=== PATIENT | female | born 1950 | race Caucasian/White ===

== ENCOUNTER → 2018-08-13 09:41 | Outpatient (CLI) | payer MEDICARE, BC ==
[2014-02-10 14:14] VITALS: BMI 35.1
--- NOTE | ~2018-08-13 | ST ---
PATIENT:PAUL CHAVEZ MEDICAL RECORD: [id number] SEX: F LOCATION:[facility] ORDER #: ADMISSION DATE: 08/13/18 AGE OF PATIENT: 68 REFERRING PHYSICIAN: INTERPRETING PHYSICIAN: EMILY TRUONG MD DATE OF SERVICE: 08/13/2018 PROCEDURE: Nuclear stress test. INDICATED BY: Dr. Calabrese in [place]. INDICATION: Angina and coronary artery disease, shortness of breath, hypertension, and hyperlipidemia. She was exercised on standard Lexiscan protocol with 33 mCi of sestamibi injected at peak stress, 11 mCi used for rest images. FINDINGS: Gated SPECT reveals preserved ejection fraction at 67% with good wall motioning and thickening and brightening throughout all segments. SPECT imaging Cardiolite was used as myocardial perfusion agent. There is reversibility anteriorly and apically. This includes the basal, mid apical, anterior segments as well as the apex itself. The degree of reversibility is moderate. The amount of myocardium involved is moderate to large. OVERALL IMPRESSION: 1. This is an abnormal nuclear stress test, reversible changes anteroapically. 2. Gated SPECT reveals preserved ejection fraction at 67% in this patient with ongoing symptomatology, the current scan does suggest the presence of hemodynamically significant coronary artery disease. We will proceed with coronary angiography as followup study. TRANSINT:[id number] Voice Confirmation ID: [id number] DOCUMENT ID: [id number] EMILY TRUONG MD CC: [id number] DICTATION DATE: 08/13/18 1619 RAYMOND MILL OPERATOR: 08/14/18 0430 DEP CLI 08/13/18 [facility] [address] [id number]
[~2018-08-13 09:41] MED LIST: ASPIRIN EC81 M1 PO; DEMEROL50 MG PO; MELATONIN 3 MG1 TAB PO; PLAVIX75 MG PO
== END | disposition home or self-care (01) ==
LOC: D.HCCARDIO 09:41
PROVIDERS: ATTEND Internal Medicine Interventional Cardiology
DX: I25.10 Atherosclerotic heart disease of native coronary artery without angina pectoris (principal)

== ENCOUNTER 2018-08-22 07:59 | Outpatient (CLI) | payer MEDICARE, BC ==
[~2018-08-22] VITALS: Ht 162.6 cm; Wt 114.1 kg
--- NOTE | ~2018-08-22 | HEMODYNAMI ---
PATIENT:PAUL CHAVEZ MEDICAL RECORD: [id number] : 50 LOCATION:[facility] ADMISSION DATE: 08/22/18 Generatedon:08/22/201811:08 Patient name: PAUL CHAVEZ Patient #: [id number] SSN: : 1950 Date of study: 08/22/2018 Page: Of Hemodynamic Procedure Report Patient Data Patient Demographics Procedure consent was obtained First Name: PAUL Gender: Female Last Name: SCOTT : 1950 [facility] Initial: F Age: 68 year(s) Patient #: [id number] Race: Unknown Additional ID: [id number] Contact details [address]: [address] [place] [address] State: [place] City: [place] Zip code: [address] Admission Admission Data Admission Date: 08/22/2018 Admission Time: 7:59 Lab Results Lab Result Date: 08/22/2018 Lab Result Time: 0:00 Biochemistry Name Units Result Min Max BUN mg/dl 14 --(--*-)-- 7 18 Creatinine mg/dl 0.7 --(*---)-- 0.6 1.3 CBC Name Units Result Min Max Hematocrit % 42.6 --(*---)-- 42 54 Hemoglobin g/dl 14.5 --(*---)-- 13.5 17.5 Procedure Procedure Types Cath Procedure Diagnostic Procedure LHC LH w/Coronaries FFR/IVUS FFR Initial Sedation Charges Moderate Sedation up to 15 minutes PCI Procedure Coronary Stent Coronary Stent Initial Procedure Description Procedure Date Procedure Date: 08/22/2018 Procedure Start Time: 10:46 Procedure End Time: 11:05 Procedure Staff Name Function Eliezer Layton MD Performing Physician Marbella Sorto RT Scrub Andreia Soni RT Monitor Kaye Hayes RN Nurse Procedure Data Cath Procedure Fluoroscopy Diagnostic fluoroscopy Total fluoroscopy Time: 6.3 time: 6.3 min min Diagnostic fluoroscopy Total fluoroscopy dose: dose: 1231 mGy 1231 mGy Contrast Material Contrast Material Type Amount (ml) Isovue 300 119 Entry Location Entry Primary Successful Side Size Upsize Upsize Entry Closure [place] ccessful Closure Location (Fr) 1 (Fr) 2 (Fr) Remarks Device Remarks Radial Right 6 Fr Mechanical artery Short Compression Estimated blood loss: 10 ml Diagnostic catheters Device Type Used For End Catheter Placement DIAGNOSTIC [place] 110cm 5 Procedure Fr catheter ([id number]) Procedure Complications No complications Procedure Medications Medication Administration Route Dosage 0.9% NaCl I.V. 100 ml/hr Oxygen etCO2 Nasal cannula 2 l/min Lidocaine 2% added to field 20 Heparin Flush Bag added to field 2 bags (1000units/500ml NS) Radial Cocktail added to field 1 syringe (Verapamil 2mg/Nitro 400mcg/Heparin 1500units) Versed I.V. 2 mg Fentanyl I.V. 50 mcg Versed I.V. 1 mg Fentanyl I.V. 25 mcg Heparin Bolus I.V. 4000 units Integrilin (Bolus I.V. 10.2 ml 2mg/ml) Plavix P.O. 600 mg Hemodynamics Rest HGB: 14.5 (g/dl) Heart Rate: 75 (bpm) Snapshots Pre Cath Intra NCS Post Cath Vital Signs Time Heart Resp SPO2 etCO2 NIBP (mmHg) Rhythm Pain Sedation Rate (ipm) (%) (mmHg) Status Level (bpm) 10:33:34 74 13 98 41 165/94(140) NSR 0 (11) 10(A) , No pain 10:38:07 69 12 97 39.8 163/93(137) NSR 0 (11) 10(A) , No pain 10:42:37 71 14 96 39.1 137/79(97) NSR 0 (11) 10(A) , No pain 10:46:59 73 14 98 41.3 133/70(113) NSR 0 (11) 10(A) , No pain 10:51:26 80 11 98 39.1 124/72(90) NSR 0 (11) 10(A) , No pain 10:55:50 75 11 97 42.1 133/69(93) NSR 0 (11) 9(A) , No pain 11:00:16 79 13 97 43.6 128/71(98) NSR 0 (11) 9(A) , No pain 11:04:40 76 14 98 41.3 126/70(99) NSR 0 (11) 10(A) , No pain Medications Time Medication Route Dose Verified Delivered Reason Not es Effectiveness by by 10:34:13 0.9% NaCl I.V. 100 Eliezer Kaye used for ml/hr Kinjal Hayes cook 3 pastry 10:34:20 Oxygen etCO2 2 l/min Eliezer Kaye used for Nasal Kinjal Hayes procedure cannula RN 10:34:25 Lidocaine 2% added 20ml Eliezer Eliezer for local to vial Kinjal Layton MD anesthetic field 10:34:30 Heparin Flush added 2 bags Eliezer Eliezer used for Bag to Kinjal Layton MD procedure (1000units/500ml field NS) 10:34:37 Radial Cocktail added 1 Eliezer Eliezer used for (Verapamil to syringe Kinjal Layton MD procedure 2mg/Nitro field 400mcg/Heparin 1500units) 10:46:22 Versed I.V. 2 mg Eliezer Kaye for sedation Kinjal Hayes RN 10:46:27 Fentanyl I.V. 50 mcg Eliezer Kaye for sedation Kinjal Hayes RN 10:51:40 Versed I.V. 1 mg Eliezer Kaye for sedation Kinjal Hayes RN 10:51:44 Fentanyl I.V. 25 mcg Eliezer Kaye for sedation Kinjal Hayes RN 10:55:52 Heparin Bolus I.V. 4000 Eliezer Kaye for sera ified units Kinjal Hayes anticoagulation with Dr. KHUSHI Layton 10:56:07 Integrilin I.V. 10.2 ml Eliezer Kaye for (Bolus 2mg/ml) Kinjal Hayes antiplatelet RN therapy 10:56:22 Plavix P.O. 600 mg Eliezer Kaye for Kinjal Hayes antiplatelet RN therapy Procedure Log Time Note 10:25:31 Kaye Hayes RN sent for patient. Start room use. 10:25:32 Time tracking: Regular hours (M-F 7:00 - 5:00) 10:25:37 Plan of Care:Hemodynamics will remain stable., Cardiac rhythm will remain stable., Comfort level will be maintained., Respiratory function will remain adequate., Patient/ family verbilizes understanding of procedure., Procedure tolerated without complication., Recovers from procedure without complications.. 10:26:37 Patient received from Pre/Post Procedure Room to CCL 1 Alert and oriented. Tansferred to table in Supine position. 10:26:39 Warm blankets applied, and rachelle hugger turned on for patient comfort. 10::39 Correct patient and procedure confirmed by team. 10:26:41 Signed procedure consent form obtained from patient. 10:26:42 ECG and BP/O2 sat monitors applied to patient. 10:32:10 Vital chart was started 10:32:38 Baseline sample Acquired. 10:32:42 Rhythm: sinus rhythm 10:32:44 Full Disclosure recording started 10:32:47 H&P Date Dictated: 08/22/2018 Within 30 days and on chart., H&P Addendum completed by physician on day of procedure. (MUST COMPLETE FOR ALL OUTPATIENTS). 10:32:49 Pre-procedure instructions explained to patient. 10:32:49 Pre-op teaching completed and patient verbalized understanding. 10:32:51 Family in waiting room. 10:32:52 Patient NPO since Midnight. 10:32:54 Is the patient allergic to Iodine/contrast media? No. 10:32:55 Was the patient premedicated? No 10:34:13 0.9% NaCl 100 ml/hr I.V. was administered by Kaye Hayes RN; used for procedure; 10:34:20 Oxygen 2 l/min etCO2 Nasal cannula was administered by Kaye Hayes RN; used for procedure; 10:34:25 Lidocaine 2% 20ml vial added to field was administered by Eliezer Layton MD; for local anesthetic; 10:34:30 Heparin Flush Bag (1000units/500ml NS) 2 bags added to field was administered by Eliezer Layton MD; used for procedure; 10:34:37 Radial Cocktail (Verapamil 2mg/Nitro 400mcg/Heparin 1500units) 1 syringe added to field was administered by Eliezer Layton MD; used for procedure; 10:35:19 Snore? Yes 10:35:22 Sleep apnea? Yes 10:35:25 Deviated septum? No 10:35:27 Opens mouth fully? Yes 10:35:29 Sticks out tongue? Yes 10:35:38 Patient diabetic? Yes. 10:35:45 If diabetic: On Metformin? Yes 10:35:54 If on Metformin: Last Dose? 08/21/2018 10:36:19 ----Pre-sedation anethsthesia assessment.---- 10:36:24 Previous problem with sedation/anesthesia? No ? 10:36:30 Airway obstruction? No ? 10:36:34 Airway obstruction? No ? 10:36:37 Dentures? No ? 10:36:57 Pre procedure: right dorsailis pedis pulse 2+ Normal; easily identifiable; not easily obliterated 10:37:07 Modified Biju's test Radial < 7 seconds 10:37:27 Patient pain scale 0/10 ?. 10:37:46 IV patent on arrival in right forearm with 0.9% NaCl at 100ml/hr. 10:40:14 Baseline sample Acquired. 10:41:36 Lab results completed and on chart. 10:42:09 Lab Result : Creatinine 0.7 mg/dl 10:42:09 Lab Result : BUN 14 mg/dl 10:42:09 Lab Result : Hemoglobin 14.5 g/dl 10:42:09 Lab Result : Hematocrit 42.6 % 10:42:14 Right Radial & Right Groin area was prepped with chlora-prep and draped in sterile fashion 10:42:17 Alarms reviewed by R. N. 10:42:17 Sharps counted by scrub and verified by R.N. 10:42:57 Use device set Radial Dx or PCI 10:42:58 ACIST Syringe (47139) opened to sterile field. 10:42:59 Bag Decanter (2002S) opened to sterile field. 10:42:59 ACIST Manifold (76669) opened to sterile field. 10:43:00 ACIST Hand Control (21440) opened to sterile field. 10:43:01 Tegaderm 4 x 4 (1626W) opened to sterile field. 10:43:03 Medline Cath Pack ([id number]) opened to sterile field. 10:43:04 DIAGNOSTIC WIRE .035 260cm J wire (173325) opened to sterile field. 10:43:05 MBrace Wrist Support ([id number]) opened to sterile field. 10:43:06 SHEATH 6FR Slender (28-2919) opened to sterile field. 10:43:26 Zero performed for pressure channel P1 10:44:12 Zero performed for pressure channel P1 10:45:39 --------ALL STOP TIME OUT------ 10:45:39 Final Timeout: patient, procedure, and site verified with staff and physician. All members of the team are in agreement. 10:45:40 Right Radial & Right Groin site verified by team. 10:45:43 Maximum allowable Isovue 300 dose 300ml. Physician notified. (300ml for normal creatinines. For patients with creatinine of 1.7 or higher multiply weight(kg) x 5 divided by creatinine.) 10:45:46 Fire Safety Assessment: A--An alcohol-based skin anteseptic being used preoperatively., C--Open oxygen or nitrous oxide is being used., D--An ESU, laser, or fiber-optic light is being used. 10:45:48 Physical assessment completed. ASA score P 2 - A patient with mild systemic disease as per Eliezer Layton MD. 10:45:50 Sedation plan: IV Moderate Sedation Medication:Versed, Fentanyl 10:46:02 Procedure started. 10:46:22 Versed 2 mg I.V. was administered by Kaye Hayes RN; for sedation; 10:46:25 Local anesthetic to right radial artery with Lidocaine 2% by Eliezer Layton MD.INITIAL ACCESS ONLY 10:46:27 Fentanyl 50 mcg I.V. was administered by Kaye Hayes RN; for sedation; 10:46:57 A 6 Fr Short sheath was inserted into the Right Radial artery 10:47:13 A DIAGNOSTIC [place] 110cm 5 Fr catheter (015042) was advanced over the wire and used for Procedure. 10:47:19 LV gram done using MCNULTY 10:47:22 Injector settings: Ml/sec: 7, Volume: 15, 10:47:49 EF : 65 % 10:48:50 LCA angiography performed. 10:49:07 RCA angiography performed. 10:49:09 Catheter exchanged over wire. 10:49:50 GUIDE 6FR XBLAD 3.5 catheter ([id number]) opened to sterile field. 10:49:50 Rimforest Verrata Plus pressure wire (64520Z) opened to sterile field. 10:49:50 INFLATOR Merit BasixCompak (AP9789) opened to sterile field. 10:50:54 6 Fr XBLAD 3.5 guide catheter was inserted over the wire 10:51:40 Versed 1 mg I.V. was administered by Kaye Hayes RN; for sedation; 10:51:44 Fentanyl 25 mcg I.V. was administered by Kaye Hayes RN; for sedation; 10:52:47 FFR/IFR wire advanced. 10:53:41 DIAG lesion measured at 0.89 with IFR 10:55:52 Heparin Bolus 4000 units I.V. was administered by Kaye Hayes RN; for anticoagulation; verified with Dr. Layton 10:56:07 Integrilin (Bolus 2mg/ml) 10.2 ml I.V. was administered by Kaye Hayes RN; for antiplatelet therapy; 10:56:22 Plavix 600 mg P.O. was administered by Kaye Hayes RN; for antiplatelet therapy; 10:58:00 Place stent Inflation Number: 1 A COBRA RX 2.5 X 8 Stent was prepped and advanced across the 1st Diag. The stent was deployed at 13 GIL for 0:10 (min:sec). 10:58:12 Stent catheter was removed intact over wire. 10:58:17 Wire redirected to CIRC. 11:02:35 Wire removed. 11:02:37 Guide catheter removed. 11:02:45 Procedure ended.(Physican Out) 11:02:53 TR BAND Standard ([id number]) opened to sterile field. 11:03:46 Sheath removed intact; hemostasis achieved with Mechanical Compression to the Right Radial artery. 11:03:58 Fluoroscopy time 06.30 minutes. 11:04:05 Fluoroscopy dose: 1231 mGy 11:04:05 Flurop Dose total: 1231 11:04:13 Contrast amount:Isovue 300 119ml. 11:04:14 Sharps counted by scrub and verified by R.N. 11:04:23 TR band inflated with 10cc of air. 11:04:27 Post-procedure physical assessment completed. ASA score P 2 - A patient with mild systemic disease as per Eliezer Layton MD. 11:04:29 Post procedure rhythm: sinus rhythm 11:04:31 Estimated blood loss: 10 ml 11:04:37 Post procedure instruction explained to patient.Patient verbalizes understanding. 11:04:38 Patient needs reinforcement of post procedure teaching. 11:05:05 Procedure type changed to Cath procedure, Diagnostic procedure, LHC, [facility] w/Coronaries, FFR/IVUS, FFR Initial, Sedation Charges, Moderate Sedation up to 15 minutes, PCI procedure, Coronary Stent, Coronary Stent Initial 11:05:32 Procedure and supply charges have been captured, reviewed, submitted and are correct. 11:05:35 Procedure Complication : No complications 11:05:37 Vital chart was stopped 11:05:37 See physician's report for complete and final results. 11:05:38 Report given to Pre/Post Procedure Room. 11:05:44 Patient transfered to Pre/Post Procedure Room with Bed. 11:05:46 Procedure ended. 11:05:46 Full Disclosure recording stopped 11:05:48 End room use (Document Last) Intervention Summary Intervention Notes Time ActionType Lesion and Equipment Action# Pressure Duration Attributes Used 10:58:00 Place stent 1st Diag COBRA RX 1 13 00:10 2.5 X 8 Stent Device Usage Item Name Manufacture Quantity Catalog Hospital Part Current Minimal Lot# / Number Charge Number Stock Stock Serial# Code ACIST Syringe Acist 1 47644 246854 042779 997457 20 (79969) Medical Systems Inc Bag Decanter Microtek 1 2001S 834212 38336 757719 5 (2001S) Medical Inc. ACIST Manifold Acist 1 97070 613651 164379 202852 5 (65800) Medical Systems Inc ACIST Hand Acist 1 43350 354821 326757 593901 5 Control Medical (38207) Systems Inc Tegaderm 4 x 4 3M 1 1626W 800243 798771 576713 5 (1626W) Medline Cath Medline 1 [id number] 847014 63194 629673 5 Pack ([id number]) DIAGNOSTIC [place] 1 562961 350212 496671 891301 30 WIRE .035 260cm J wire (595483) MBrace Wrist Advanced 1 140-0250-00 074122 82932 354138 5 Support Vascular ([id number]) Dynamics SHEATH 6FR Terumo 1 [id number] 335618 641155 217834 5 Slender (80-1060) DIAGNOSTIC Terumo 1 40-5752 869020 867678 588849 5 [place] 110cm 5 Fr catheter (824352) GUIDE 6FR Cardinal 1 [id number] 948185 869203 048576 10 XBLAD 3.5 Health catheter (62712473) Rimforest Rimforest 1 70001M 082588 498904453 776290 5 Verrata Plus pressure wire (04950P) INFLATOR Merit Merit 1 UP7568 084154 041342 956556 15 [facility] Medical (KV6295) COBRA RX 2.5 X Celonova 1 230167 [id number] [id number] 7 [id number] 8 stent Biosciences () TR BAND Terumo 1 [id number] 606696 327732 463980 40 Standard ([id number]) Signature Audit [place] Stage Time Signature Unsigned Intra-Procedure 08/22/2018 Andreia Soni 11:08:36 AM RT(R) Signatures Monitor : Andreia Soni Signature : RT Date : Time : [address] [place] [address]
[2018-08-22] MEDS ORDERED: LISINOPRIL5 MG PO (08:18)
[2018-08-22] MEDS ORDERED: GLUCOPHAGE500 MG PO (08:18)
[2018-08-22] MEDS ORDERED: GLIMEPIRIDE2 MG PO (08:18)
[2018-08-22] MEDS ORDERED: GABAPENTIN100 MG PO (08:18)
[2018-08-22 08:26] VITALS: BP 135/52; Ht 162.6 cm; Wt 114.1 kg
[2018-08-22 08:45] LABS: BASOPHILS 0.4 % (0-2); EOSINOPHILS 4.6 % (0-7); HEMATOCRIT 42.6 % (36.0-48.0); HEMOGLOBIN 14.5 g/dL (12-16); IMMATURE GRANULOCYTES 0.2 % (0-5); MCH 29.7 pg (26.0-34.0); MCV 87.1 fL (80.0-100.0); MEAN PLATELET VOLUME 9.6 fL (7.4-10.4); MONOCYTES 8.6 % (2-11); NEUTROPHILS 67.2 % (40-80); PLATELET COUNT 202 10x3/uL (130-400); RBC 4.89 10x6/uL (4.00-5.40); RDW 12.9 % (11.5-14.5); WBC 5.2 10x3/uL (4.8-10.8)
[2018-08-22 08:52] LABS: CALC OSMOLALITY 280 mosm/kg (275-300); CALCIUM 9.1 mg/dL (8.5-10.1); CARBON DIOXIDE 26.6 mmol/L (21.0-32.0); CHLORIDE - SERUM 104 mmol/L (98-107); CREATININE - SERUM 0.7 mg/dL (0.6-1.3); GLUCOSE 109 mg/dL (74-106); POTASSIUM - SERUM 4.2 mmol/L (3.5-5.1); SODIUM 140 mmol/L (136-145); UREA NITROGEN 14 mg/dL (7-18); eGFR NON AFRICAN AMERICAN 88 mL/min (90-120)
[2018-08-22] MEDS ORDERED: PLAVIX75 MG PO (11:23)
--- NOTE | 2018-08-22 16:42 | OP ---
PATIENT NAME: PAUL CHAVEZ MEDICAL RECORD: [id number] :50 LOCATION:[facility] ADMISSION DATE: SURGEON: EMILY TRUONG MD DATE OF OPERATION: 08/22/2018 DATE OF SERVICE: 08/22/2018 PROCEDURES: 1. PTCA stent LAD diagonal. 2. IFR. 3. Left heart catheterization. 4. Selective coronary angiography. 5. Left ventriculogram. INDICATION: Angina and coronary artery disease. DESCRIPTION OF PROCEDURE IN DETAIL: After informed consent was obtained and after a detailed description of risks, benefits as well as alternative therapies, the patient elected to proceed with angiogram and angioplasty. The right radial area was prepped and draped in normal sterile fashion. Right radial artery was cannulated via modified Seldinger technique with placement of 6-Yoruba sheath. All catheters exchanged through this sheath. FINDINGS: The left ventriculogram was performed in the standard 30-degree MCNULTY view, reveals good cardiac wall motion throughout all segments. Overall ejection fraction is estimated at 65%. SELECTIVE CORONARY ANGIOGRAPHY: 1. Left main is with no significant angiographic disease. 2. Left anterior descending has previously placed stents, these are widely patent; however, there is a large diagonal system that has 80% to 90% stenosis at the ostium. IFR is abnormal. 3. Left circumflex has previously placed stents. There is a 50% in-stent restenosis in the mid vessel. 4. Right coronary has moderate irregularities, but no discrete flow-limiting stenosis. PTCA STENT OF THE LAD DIAGONAL: The stent used was a 2.5 x 8 mm Cobra. Result was 0% residual stenosis. OVERALL IMPRESSION: Successful percutaneous transluminal coronary angioplasty stent the left anterior descending diagonal going from 80% to 90% initial stenosis to 0% residual. TRANSINT:[id number] Voice Confirmation ID: [id number] DOCUMENT ID: [id number] EMILY TRUONG MD at 1642 CC: [id number] DICTATION DATE: 08/22/18 1111 SPOOL SALVAGER: 08/22/18 1145 DEP CLI 08/22/18 [address] [id number]
== END 2018-08-22 15:05 ==
LOC: D.CATH 07:59 → EDSTATUS 10:30 → D.CATH 15:05
PROVIDERS: ATTEND Internal Medicine Interventional Cardiology
DX: I25.110 Atherosclerotic heart disease of native coronary artery with unstable angina pectoris (principal); R94.30 Abnormal result of cardiovascular function study, unspecified; R06.02 Shortness of breath

== ENCOUNTER → 2019-03-06 07:57 | Outpatient (CLI) | payer MEDICARE, BC ==
[2018-08-22 08:26] VITALS: BMI 43.2
[~2019-03-06 07:57] MED LIST changes: +GABAPENTIN100 MG PO; +GLIMEPIRIDE2 MG PO; +GLUCOPHAGE500 MG PO; +LISINOPRIL5 MG PO
--- NOTE | 2019-03-11 11:17 | ST ---
PATIENT:PAUL CHAVEZ MEDICAL RECORD: [id number] SEX: F LOCATION:[facility] ORDER #: ADMISSION DATE: 03/06/19 AGE OF PATIENT: 68 REFERRING PHYSICIAN: INTERPRETING PHYSICIAN: EMILY TRUONG MD DATE OF SERVICE: PROCEDURE: Nuclear stress test. INDICATIONS: Angina, coronary artery disease, shortness of breath, hypertension. She was exercised on standard Lexiscan protocol with 33 mCi of sestamibi injected at peak stress, 11 mCi used previously for rest images. FINDINGS: Gated SPECT reveals a preserved ejection fraction at 78% with good wall motion and thickening and brightening throughout all segments. SPECT imaging: Cardiolite was used as myocardial perfusion agent. There is reversibility anteriorly, apically, and laterally as well as inferiorly. The anteroapical segments including the basal, mid, apical anterior segments, the apex itself, apical lateral, mid lateral, basal lateral segments. The degree of reversibility is moderate to severe. The amount of myocardium involved is large. The inferior segments included the basal, mid, apical inferior segments. The degree of reversibility here is moderate. The amount of myocardium involved is moderate. OVERALL IMPRESSION: This is very highly abnormal nuclear stress test. Reversible ischemia throughout anterior, inferior, apically, and laterally suggestive of multivessel coronary artery disease. TRANSINT:[id number] Voice Confirmation ID: [id number] DOCUMENT ID: [id number] EMILY TRUONG MD at 1117 CC: FLOYD ROSS MD [id number] DICTATION DATE: 03/09/19 1105 INSPECTOR OPTICAL INSTRUMENT: 03/09/198 DEP CLI 03/06/19 [facility] [address] [place] [address]
== END | disposition home or self-care (01) ==
LOC: D.HCCARDIO 07:57
PROVIDERS: ATTEND Internal Medicine Interventional Cardiology
DX: I25.10 Atherosclerotic heart disease of native coronary artery without angina pectoris (principal)

== ENCOUNTER 2019-03-18 07:01 | Outpatient (CLI) | payer MEDICARE, BC ==
[~2019-03-18] VITALS: Ht 162.6 cm; Wt 121.4 kg
--- NOTE | ~2019-03-18 | OP ---
PATIENT NAME: PAUL CHAVEZ MEDICAL RECORD: [id number] :50 LOCATION:[facility] ADMISSION DATE: SURGEON: EMILY TRUONG MD DATE OF OPERATION: 03/18/2019 PROCEDURES: 1. PTCA stent LAD. 2. PTCA stent left circumflex. 3. IFR LAD. 4. IFR left circumflex. 5. Left heart catheterization. 6. Selective coronary angiography. 7. Left ventriculogram. INDICATION: Angina and coronary artery disease. PROCEDURE IN DETAIL: After informed consent was obtained and after a detailed description of risks, benefits as well as alternative therapies, the patient elected to proceed with angiogram and angioplasty. The right radial area was prepped and draped in normal sterile fashion. Right radial artery was cannulated via modified Seldinger technique with placement of 6-German sheath. All catheters exchanged through this sheath. FINDINGS: Left ventriculogram was performed in standard 30-degree MCNULTY view, reveals good cardiac wall motion, ejection fraction estimated 60%. SELECTIVE CORONARY ANGIOGRAPHY: 1. Left main is with no significant angiographic disease. 2. Left anterior descending has 70% to 80% stenosis proximally. An IFR is abnormal at 0.88. 3. Left circumflex has previously placed stents. There is 80% in-stent restenosis in the mid vessel and IFR was abnormal at 0.77. 4. Right coronary artery has moderate irregularities, but no flow-limiting stenosis. PTCA STENT OF THE LAD: The stent used was 3.0 x 18 mm [place]. Result was 0% residual stenosis. PTCA STENT OF LEFT CIRCUMFLEX: The stent used was a 2.5 x 15 mm [place]. Result was 0% residual stenosis. OVERALL IMPRESSION: Successful percutaneous transluminal coronary angioplasty stent of the left anterior descending and left circumflex, both going from 70% to 80% initial stenosis to 0% residual. TRANSINT:[id number] Voice Confirmation ID: [id number] DOCUMENT ID: [id number] OPERATIVE REPORT [id number] PAUL CHAVEZ EMILY TRUONG MD CC: [id number] DICTATION DATE: 03/18/19 1028 [employer] MANAGER: 03/18/19 1045 [facility] [address] [place] [address]
--- NOTE | ~2019-03-18 | HEMODYNAMI ---
PATIENT:PAUL CHAVEZ MEDICAL RECORD: [id number] : 50 LOCATION:[facility] ADMISSION DATE: 03/18/19 Generatedon:03/18/201910:32 Patient name: PAUL CHAVEZ Patient #: [id number] SSN: : 1950 Date of study: 03/18/2019 Page: Of Hemodynamic Procedure Report Patient Data Patient Demographics Procedure consent was obtained First Name: PAUL Gender: Female Last Name: SCOTT : 1950 [facility] Initial: F Age: 69 year(s) Patient #: [id number] Race: Additional ID: [id number] Contact details [address]: [address] [place] [address] State: [place] City: [place] Zip code: [address] Past Medical History Allergies Allergen Reaction Date Comments Reported Other allergy 03/18/2019 OXYCODONE Admission Admission Data Admission Date: 03/18/2019 Admission Time: 7:01 Arrival Date: 03/18/2019 Arrival Time: 0:00 Room #: [facility] Height (in.): 63.78 BSA: 2.21 (m2) Height (cm.): 162 BMI: 46.11 (kg/m2) Weight (lbs.): 266.76 Weight (kg.): 121 Lab Results Lab Result Date: 03/18/2019 Lab Result Time: 0:00 Biochemistry Name Units Result Min Max BUN mg/dl 9 --(*---)-- 7 18 Creatinine mg/dl 0.8 --(-*--)-- 0.6 1.3 eGFR ml/min 75 *-(----)-- 90 120 NONAFRICAN CBC Name Units Result Min Max Hematocrit % 44.3 --(*---)-- 42 54 Hemoglobin g/dl 15 --(-*--)-- 13.5 17.5 Procedure Procedure Types Cath Procedure Diagnostic Procedure [facility] w/Coronaries FFR/IVUS FFR Initial FFR Additional Sedation Charges Moderate Sedation up to 15 minutes PCI Procedure Coronary Stent Coronary Stent Initial x2 Hemochron ACT Test Procedure Description Procedure Date Procedure Date: 03/18/2019 Procedure Start Time: 10:06 Procedure End Time: 10:29 Procedure Staff Name Function Eliezer Layton MD Performing Physician Andreia Soni RT Monitor Alyssa Hsu RT Monitor Anibal Zapien RN Nurse Addison Elias RT Scrub Destiney Gentile RT Scrub Procedure Data Cath Procedure Fluoroscopy Diagnostic fluoroscopy Total fluoroscopy Time: 6.7 time: 6.7 min min Diagnostic fluoroscopy Total fluoroscopy dose: dose: 1755 mGy 1755 mGy Contrast Material Contrast Material Type Amount (ml) Isovue 370 124 Entry Location Entry Primary Successful Side Size Upsize Upsize Entry Closure [place] ccessful Closure Location (Fr) 1 (Fr) 2 (Fr) Remarks Device Remarks Radial Right 6 Fr Mechanical artery Short Compression Estimated blood loss: 10 ml Diagnostic catheters Device Type Used For End Catheter Placement DIAGNOSTIC [place] 110cm 5 Procedure Fr catheter ([id number]) Procedure Complications No complications Procedure Medications Medication Administration Route Dosage Oxygen etCO2 Nasal cannula 2 l/min Lidocaine 2% added to field 20 Heparin Flush Bag added to field 2 bags (1000units/500ml NS) 0.9% NaCl I.V. 100 ml/hr Radial Cocktail I.A. 1 syringe (Verapamil 2mg/Nitro 400mcg/Heparin 1500units) Versed I.V. 1 mg Fentanyl I.V. 50 mcg Versed I.V. 1 mg Fentanyl I.V. 50 mcg Versed I.V. 1 mg Fentanyl I.V. 50 mcg Heparin Bolus I.V. 4000 units Integrilin (Bolus I.V. 10.7 ml 2mg/ml) Versed I.V. 0.5 mg Fentanyl I.V. 25 mcg Plavix P.O. 600 mg Hemodynamics Rest BSA: 2.21 (m2) HGB: 15 (g/dl) O2 Consumption: Estimated: 213.42 (ml/min) O2 Cons umption indexed: Estimated:96.57 (ml/min/m) Heart Rate: 81 (bpm) Snapshots Pre Cath Intra NCS Post Cath Vital Signs Time Heart Resp SPO2 etCO2 NIBP (mmHg) Rhythm Pain Sedation Rate (ipm) (%) (mmHg) Status Level (bpm) 9:52:02 88 21 95 27.8 145/40(106) NSR 0 (11) 10(A) , No pain 9:56:24 86 13 94 19.5 128/59(88) NSR 0 (11) 10(A) , No pain 10:00:46 77 19 95 31.5 129/59(100) NSR 0 (11) 10(A) , No pain 10:05:06 78 14 97 34.5 123/56(93) NSR 0 (11) 10(A) , No pain 10:09:12 85 18 95 35.3 98/64(78) NSR 0 (11) 9(A) , No pain 10:14:27 86 18 93 43.5 121/38(90) NSR 0 (11) 9(A) , No pain 10:18:41 87 19 94 36.8 122/56(86) NSR 0 (11) 9(A) , No pain 10:23:06 91 22 95 37.6 119/49(75) NSR 0 (11) 9(A) , No pain 10:28:09 90 12 96 37.6 130/60(85) NSR 0 (11) 10(A) , No pain Medications Time Medication Route Dose Verified Delivered Reason Not es Effectiveness by by 9:53:08 Oxygen etCO2 2 l/min Eliezer Barnett used for Nasal Kinjal Zapien RN procedure cannula 9:53:13 Lidocaine 2% added 20ml Eliezer Martins for local to vial Kinjal Layton MD anesthetic field 9:53:18 Heparin Flush added 2 bags Eliezer Martins used for Bag to Kinjal Layton MD procedure (1000units/500ml field NS) 9:53:28 0.9% NaCl I.V. 100 Eliezer Buffie Per physician ml/hr Kinjal Zapien RN 10:01:02 Fentanyl I.V. 50 mcg Eliezer Barnett for sedation Kinjal Zapien RN 10:01:57 Versed I.V. 1 mg Eliezerzac Duronie for sedation Kinjal Zapien RN 10:04:43 Versed I.V. 1 mg Eliezer Buffie for sedation Kinjal Zapien RN 10:04:46 Fentanyl I.V. 50 mcg Eliezer Barnett for sedation Kinjal Zapien RN 10:07:28 Radial Cocktail I.A. 1 Eliezer Martins for (Verapamil syringe Kinjal Layton MD vasodilation 2mg/Nitro 400mcg/Heparin 1500units) 10:07:59 Versed I.V. 1 mg Eliezer Barnett for sedation Kinjal Zapien RN 10:08:03 Fentanyl I.V. 50 mcg Eliezer Barnett for sedation Kinjal Zapien RN 10:11:13 Versed I.V. 0.5 mg Eliezer Barnett for sedation Kinjal Zapien RN 10:11:18 Fentanyl I.V. 25 mcg Eliezer Barnett for sedation Kinjal Zapien RN 10:17:43 Heparin Bolus I.V. 4000 Eliezer Barnett for sera ified units Kinjal Zapien RN anticoagulation with dr layton 10:18:35 Integrilin I.V. 10.7 ml Eliezer Barnett for was suze (Bolus 2mg/ml) Kinjal Zapien RN antiplatelet 9.3 ml therapy of vial 10:27:27 Plavix P.O. 600 mg Eliezer Zapien RN antiplatelet therapy Procedure Log Time Note 9:30:46 Informed consent obtained and on chart 9:34:06 Anibal Zapien RN sent for patient. Start room use. 9:34:09 Procedure Status Elective Heart Cath (OP). 9:34:10 Time tracking: Regular hours (M-F 7:00 - 5:00) 9:34:13 Plan of Care:Hemodynamics will remain stable., Cardiac rhythm will remain stable., Comfort level will be maintained., Respiratory function will remain adequate., Patient/ family verbilizes understanding of procedure., Procedure tolerated without complication., Recovers from procedure without complications.. 9:34:20 H&P Date Dictated: 02/26/2019 Within 30 days and on chart., H&P Addendum completed by physician on day of procedure. (MUST COMPLETE FOR ALL OUTPATIENTS). 9:34:34 Patient allergic to Other allergyOXYCODONE 9:34:58 Lab Result : BUN 9 mg/dl 9::58 Lab Result : Creatinine 0.8 mg/dl 9:34:58 Lab Result : eGFR NONAFRICAN 75 ml/min 9:34:58 Lab Result : Hemoglobin 15 g/dl 9:34:58 Lab Result : Hematocrit 44.3 % 9:38:57 Patient Weight : 266.76 lbs 9:39:00 Patient Height : 63.78 inches 9:39:06 Arrival Date: 03/18/2019 12:00:00 AM 9:40:16 Risk of Mortality: .1 9:40:18 Risk of blood transfusion: .6 9:40:27 Risk of AARON: .5 9:41:55 Patient received from Pre/Post Procedure Room to CCL 2 Alert and oriented. Tansferred to table in Supine position. 9:41:56 Warm blankets applied, and rachelle hugger turned on for patient comfort. 9:41:57 Correct patient and procedure confirmed by team. 9:41:57 ECG and BP/O2 sat monitors applied to patient. 9:47:23 Pre-procedure instructions explained to patient. 9:47:24 Pre-op teaching completed and patient verbalized understanding. 9:47:26 Family in patients room. 9:47:28 Patient NPO since Midnight. 9:47:33 Is the patient allergic to Iodine/contrast media? No. 9:47:36 Was the patient premedicated? Yes 9:48:16 Is patient on blood thinner?No 9:48:18 Patient diabetic? Yes. 9:48:37 If diabetic: On Metformin? Yes 9:48:42 If on Metformin: Last Dose? 03/16/2019 9:48:47 Patient not . Patient is over age 55. 9:48:51 ----Pre-sedation anethsthesia assessment.---- 9:48:55 Previous problem with sedation/anesthesia? No ? 9:48:57 Snore? Yes 9:48:58 Sleep apnea? Yes 9:49:00 Deviated septum? No 9:49:01 Opens mouth fully? Yes 9:49:02 Sticks out tongue? Yes 9:49:05 Airway obstruction? No ? 9:49:08 Dentures? No ? 9:49:17 Vital chart was started 9:49:24 Alarms reviewed by R. N. 9:49:25 Sharps counted by scrub and verified by R.N. 9:49:30 Pre procedure: right dorsailis pedis pulse 2+ Normal; easily identifiable; not easily obliterated 9:49:33 Modified Biju's test Ulnar < 7 seconds 9:49:36 Patient pain scale 0/10 ?. 9:49:46 IV patent on arrival in left antecubital with 0.9% NaCl at KVO. 9:49:50 Lab results completed and on chart. 9:50:23 Stress Test: no; N/A ? 9:50:31 Baseline sample Acquired. 9:50:33 Full Disclosure recording started 9:50:37 Rhythm: sinus rhythm 9:50:51 Right Radial & Right Groin area was prepped with chlora-prep and draped in sterile fashion 9:50:57 Use device set Radial Dx or PCI 9:50:59 ACIST Syringe (83197) opened to sterile field. 9:51:00 Medline Cath Pack ([id number]) opened to sterile field. 9:51:00 Bag Decanter (2002S) opened to sterile field. 9:51:01 ACIST Hand Control (64419) opened to sterile field. 9:51:02 ACIST Manifold (06591) opened to sterile field. 9:51:03 MBrace Wrist Support ([id number]) opened to sterile field. 9:51:05 EMERALD Guide Wire (816-419) opened to sterile field. 9:51:06 SHEATH 6FR RAIN (1301724) opened to sterile field. 9:53:08 Oxygen 2 l/min etCO2 Nasal cannula was administered by Anibal Zapien RN; used for procedure; Verbal order read back and verified. 9:53:13 Lidocaine 2% 20ml vial added to field was administered by Eliezer Layton MD; for local anesthetic; Verbal order read back and verified. 9:53:18 Heparin Flush Bag (1000units/500ml NS) 2 bags added to field was administered by Eliezer Layton MD; used for procedure; Verbal order read back and verified. 9:53:28 0.9% NaCl 100 ml/hr I.V. was administered by Anibal Zapien RN; Per physician; Verbal order read back and verified. 10:00:42 --------ALL STOP TIME OUT------ 10:00:43 Final Timeout: patient, procedure, and site verified with staff and physician. All members of the team are in agreement. 10:00:46 Right Radial & Right Groin site verified by team. 10:00:50 Fire Safety Assessment: A--An alcohol-based skin anteseptic being used preoperatively., C--Open oxygen or nitrous oxide is being used., D--An ESU, laser, or fiber-optic light is being used. 10:00:53 Physical assessment completed. ASA score P 2 - A patient with mild systemic disease as per Eliezer Layton MD. 10:00:59 2) 60-89 Mildly reduced kidney function, and other findings (as for stage 1) point to kidney disease. 10:01:02 Fentanyl 50 mcg I.V. was administered by Anibal Zapien RN; for sedation; Verbal order read back and verified. 10:01:03 Maximum allowable contrast dose (3.7 X eGFR X 0.75)208 ml. 10:01:08 Sedation plan: IV Moderate Sedation Medication:Versed, Fentanyl 10:01:57 Versed 1 mg I.V. was administered by Anibal Zapien RN; for sedation; Verbal order read back and verified. 10:04:43 Versed 1 mg I.V. was administered by Anibal Zapien RN; for sedation; Verbal order read back and verified. 10:04:46 Fentanyl 50 mcg I.V. was administered by Anibal Zapien RN; for sedation; Verbal order read back and verified. 10:05:50 Procedure started. 10:06:10 Local anesthetic to right radial artery with Lidocaine 2% by Eliezer Layton MD.INITIAL ACCESS ONLY 10:06:58 A 6 Fr Short sheath was inserted into the Right Radial artery 10:07:16 A DIAGNOSTIC [place] 110cm 5 Fr catheter ([id number]) was advanced over the wire and used for Procedure. 10:07:28 Radial Cocktail (Verapamil 2mg/Nitro 400mcg/Heparin 1500units) 1 syringe I.A. was administered by Eliezer Layton MD; for vasodilation; Verbal order read back and verified. 10:07:59 Versed 1 mg I.V. was administered by Anibal Zapien RN; for sedation; Verbal order read back and verified. 10:08:02 LV gram done using MCNULTY 10:08:03 Fentanyl 50 mcg I.V. was administered by Anibal Zapien RN; for sedation; Verbal order read back and verified. 10:08:05 Injector settings: Ml/sec: 5, Volume: 15, 10:08:34 EF : 60 % 10:08:48 LCA angiography performed. 10:09:49 RCA angiography performed. 10:10:26 ACCDominant side:Right 10:10:48 INFLATOR Merit BasixCompak ([id number]) opened to sterile field. 10:10:49 Reydon Verrata Plus pressure wire (53025E) opened to sterile field. 10:10:58 Proceeding to intervention. 10:11:02 Catheter exchanged over wire. 10:11:13 Versed 0.5 mg I.V. was administered by Anibal Zapien RN; for sedation; Verbal order read back and verified. 10:11:18 Fentanyl 25 mcg I.V. was administered by Anibal Zapien RN; for sedation; Verbal order read back and verified. 10:11:32 GUIDE 6FR XBC 3.5 ([id number]) opened to sterile field. 10:11:48 6 Fr xbc 3.5 guide catheter was inserted over the wire 10:13:05 FFR/IFR wire advanced. 10:13:09 Wire advanced across lesion. 10:16:10 mLAD lesion measured at .77 with IFR 10:16:24 Wire redirected to CIRC.. 10:16:50 mCirc lesion measured at .88 with IFR 10:17:38 Pre PCI Site: [place] mCirc has 80% stenosis. 10:17:43 Heparin Bolus 4000 units I.V. was administered by Anibal Zapien RN; for anticoagulation; verified with dr layton Verbal order read back and verified. 10:17:44 Pre PCI Site: [place] mLAD has 80% stenosis. 10:18:35 Integrilin (Bolus 2mg/ml) 10.7 ml I.V. was administered by Anibal Zapien RN; for antiplatelet therapy; wasted 9.3 ml of vial Verbal order read back and verified. 10:19:24 Place stent Inflation Number: 1 A PAM RX 2.5 x 15 stent ([id number]) was prepped and advanced across the Mid CX . The stent was deployed at 17 GIL for 0:00 (min:sec) . 10:19:37 Inflation number: 2 The stent balloon was then re-inflated across the Mid CX to 17 GIL for 0:00 (min:sec) . 10:20:03 Stent catheter was removed intact over wire. 10:20:08 Wire redirected to LAD. 10:22:17 Place stent Inflation Number: 1 A PAM RX 3.0 x 18 stent ([id number]) was prepped and advanced across the Mid LAD . The stent was deployed at 17 GIL for 0:00 (min:sec) . 10::32 Inflation number: 2 The stent balloon was then re-inflated across the Mid LAD to 17 GIL for 0:00 (min:sec) . 10:23:02 Stent catheter was removed intact over wire. 10:23:03 Balloon removed over the wire. 10:23:04 Guide catheter removed. 10:23:14 Sheath removed intact; hemostasis achieved with Mechanical Compression to the Right Radial artery. 10:23:18 Procedure ended.(Physican Out) 10:23:30 Fluoroscopy time 06.70 minutes. 10:23:34 Flurop Dose total: 1755 10:23:34 Fluoroscopy dose: 1755 mGy 10:23:39 Dose Area Product 06117 mGy/cm. 10:23:53 Contrast amount:Isovue 370 124ml. 10:23:55 Maximum allowable dose exceeded? No. 10:23:56 Sharps counted by scrub and verified by R.N. 10:24:00 [place] band inflated with 11cc of air. 10:24:04 Post Procedure Pulses reassessed and unchanged 10:24:07 Post procedure: right dorsailis pedis pulse 2+ Normal; easily identifiable; not easily obliterated. 10:24:11 Post-procedure physical assessment completed. ASA score P 2 - A patient with mild systemic disease as per Eliezer Layton MD. 10:24:15 Post procedure rhythm: unchanged. 10:24:18 Estimated blood loss: 10 ml 10:24:20 Post procedure instruction explained to patient.Patient verbalizes understanding. 10:24:21 Patient needs reinforcement of post procedure teaching. 10:25:30 Procedure type changed to Cath procedure, Diagnostic procedure, [facility], [facility] w/Coronaries, FFR/IVUS, FFR Initial, FFR Additional, Sedation Charges, Moderate Sedation up to 15 minutes, PCI procedure, Coronary Stent, Coronary Stent Initial x2, Hemochron ACT Test 10::35 Procedure and supply charges have been captured, reviewed, submitted and are correct. 10::41 Procedure Complication : No complications 10::44 Vital chart was stopped 10::49 [facility] Findings: MVD- PCI performed (see procedure note) 10::51 Operative report dictated upon procedure completion. 10::52 See physician's report for complete and final results. 10::58 Report given to Pre/Post Procedure Room. 10:27:02 Patient transfered to Pre/Post Procedure Room with Stretcher. 10::27 Plavix 600 mg P.O. was administered by Anibal Zapien RN; for antiplatelet therapy; Verbal order read back and verified. 10:27:36 ACT drawn and resulted at 248 seconds. (normal therapeutic range 180-240 seconds). 10:29:03 Procedure ended. 10::03 Full Disclosure recording stopped 10::58 End room use (Document Last) Intervention Summary Intervention Notes Time ActionType Lesion and Equipment Used Action# Pressure Duration Attributes 10:19:24 Place stent Mid CX PAM RX 2.5 x 1 17 00:00 15 stent ([id number]) 10:19:37 Reinflate Mid CX PAM RX 2.5 x 2 17 00:00 stent 15 stent balloon ([id number]) 10:22:17 Place stent Mid LAD PAM RX 3.0 x 1 17 00:00 18 stent ([id number]) 10:22:32 Reinflate Mid LAD PAM RX 3.0 x 2 17 00:00 stent 18 stent balloon ([id number]) Device Usage Item Name Manufacture Quantity Catalog Hospital Part Current Minimal Lot# / Number Charge Number Stock Stock Serial# Code ACIST Syringe Acist 1 21309 124523 785695 355234 20 (97851) Medical Systems Inc Medline Cath Medline 1 [id number] 724389 58997 747065 5 Pack ([id number]) Bag Decanter Microtek 1 2001S 960367 09260 933300 5 (2001S) Medical Inc. ACIST Hand Acist 1 97122 831952 522579 750242 5 Control Medical (32924) Systems Inc ACIST Manifold Acist 1 55519 966961 872982 675018 5 (88770) Medical Systems Inc MBrace Wrist Advanced 1 140-0250-00 958029 86125 302419 5 Support Vascular ([id number]) Dynamics EMERALD Guide Cardinal 1 502-455 729466 421702 502149 5 Wire (667-777) Health SHEATH 6FR Cardinal 1 3957610 182985 5340353 678790 5 RAIN (2135604) Health DIAGNOSTIC Terumo 1 40-9092 003567 675867 579373 5 [place] 110cm 5 Fr catheter (486420) INFLATOR Merit Merit 1 EO0136 520093 796303 385343 15 BasixCompak Medical (ED1330) Reydon Reydon 1 32893P 202565 [id number] 138832 5 Verrata Plus pressure wire (94398D) GUIDE 6FR XBC Cardinal 1 60514104 120703 39639 285883 5 3.5 (75386149) Health PAM RX 2.5 x Medtronic 1 [id number] 086637 6837459 294204 5 [id number] 15 stent ([id number]) PAM RX 3.0 x Medtronic 1 [id number] 253688 2302599 595984 5 [id number] 18 stent ([id number]) Signature Audit [place] Stage Time Signature Unsigned Intra-Procedure 03/18/2019 Alyssa Hsu 10:31:10 AM RT(R) Intra-Procedure 03/18/2019 Anibal Zapien RN 10:32:06 AM Intra-Procedure 03/18/2019 Eliezer Layton 10:32:25 AM Signatures Performing Physician : Signature : Eliezer Layton MD Date : Time : Monitor : Andreia Soni Signature : RT Date : Time : Monitor : Alyssa Hsu Signature : RT Date : Time : Nurse : Anibal Zapien RN Signature : Date : Time : [place] [id number] [place] [address]
[2019-03-18 07:39] VITALS: BP 162/82; Ht 162.6 cm; Wt 121.4 kg
[2019-03-18 08:23] LABS: ALT (SGPT) 50 U/L (10-68); CALC OSMOLALITY 281 mosm/kg (275-300); CALCIUM 8.9 mg/dL (8.5-10.1); CARBON DIOXIDE 26.1 mmol/L (21.0-32.0); CHLORIDE - SERUM 103 mmol/L (98-107); CHOL - HDL RATIO 5.5 ratio (2.3-4.1); CHOLESTEROL, TOTAL 216 mg/dL (0-200); CREATININE - SERUM 0.8 mg/dL (0.6-1.3); HDL CHOLESTEROL 39 mg/dL (32-96); LDL CHOLESTEROL 133 mg/dL (0-100); LDL-HDL RATIO 3.4 ratio (1.5-3.5); POTASSIUM - SERUM 3.7 mmol/L (3.5-5.1); SODIUM 140 mmol/L (136-145); TRIGLYCERIDE 222 mg/dL (30-200); UREA NITROGEN 9 mg/dL (7-18); eGFR NON AFRICAN AMERICAN 75 mL/min (90-120)
[2019-03-18 08:24] LABS: GLUCOSE 163 mg/dL (74-106)
[2019-03-18 08:33] LABS: BASOPHILS 0.2 % (0-2); EOSINOPHILS 4.1 % (0-7); HEMATOCRIT 44.3 % (36.0-48.0); IMMATURE GRANULOCYTES 0.4 % (0-5); LYMPHOCYTES 17.7 % (15-50); MCH 29.4 pg (26.0-34.0); MCHC 33.9 g/dL (31.0-37.0); MCV 86.7 fL (80.0-100.0); MEAN PLATELET VOLUME 9.6 fL (7.4-10.4); MONOCYTES 9.2 % (2-11); NEUTROPHILS 68.4 % (40-80); PLATELET COUNT 229 10x3/uL (130-400); RBC 5.11 10x6/uL (4.00-5.40); RDW 13.1 % (11.5-14.5); WBC 5.3 10x3/uL (4.8-10.8)
--- NOTE | 2019-03-18 10:45 | NUR ---
PT RECEIVED VIA STRETCHER FROM GEOTHERMAL OPERATIONS MANAGER FOR RECOVERY. PT AWAKE BUT DROWSY, DENIES PAIN OR DISCOMFORT. IV PATENT INFUSING VIA ORDERS. PT PLACED ON CARDIAC MONITORS, O2 ON VIA NC AT 2L. HR NSR RATE 76, BP 123/52, RR 19, SAT 97. ZYPHER BAND AND IMMOBILIZER TO R WRIST, DRESSING CDI NO BLEEDING OR S/S HEMATOMA NOTED. ARM PINK AND WARM, CAP REFILL BRISK. PT INSTRUCTED NOT TO USE R ARM SHE VERBALIZED UNDERSTANDING. CALL LIGHT IN REACH, AT BEDSIDE
[2019-03-18] MEDS ORDERED: PLAVIX75 MG PO (10:50)
--- NOTE | 2019-03-18 11:15 | NUR ---
PT RESTING W/O COMPLAINTS. Z BAND IN PLACE, NO BLEEDING OR SWELLING NOTED. ARM PINK AND WARM, CAP REFILL BRISK. VSS. CALL LIGHT IN REACH
--- NOTE | 2019-03-18 12:00 | NUR ---
PT RESTING COMFORTABLY. VSS BP 108/46, HR 67, RR 15. Z BAND AND IMMOBILIZER IN PLACE, DRESSING CDI NO BLEEDING OR SWELLING NOTED. ARM PINK AND WARM, CAP REFILL BRISK. CALL LIGHT IN REACH
--- NOTE | 2019-03-18 12:19 | NUR ---
DR TRUONG AT , TALKED W PT AND REGARDING PLAN OF CARE AND PROCEDURE RESULTS. NO NEW ORDERS RECEIVED.
--- NOTE | 2019-03-18 12:40 | NUR ---
PT RESTING W/O COMPLAINTS. VSS. Z BAND IN PLACE, DRESSING CDI NO BLEEDING OR SWELLING NOTED. CAP REFILL BRISK.
--- NOTE | 2019-03-18 13:05 | NUR ---
PT PLACED ON BEDPAN, VOIDED APPROX 350 CC CLEAR YELLOW URINE. Z BAND AND IMMOBILIZER TO R WRIST IN PLACE, DRESSING CDI NO BLEEDING OR SWELLING NOTED. CAP REFILL BRISK. HR 88, BP 123/66, RR 17, SAT 97.
--- NOTE | 2019-03-18 13:49 | NUR ---
4CC AIR REMOVED FROM Z BAND, NO BLEEDING OR S/S HEMATOMA NOTED. ARM PINK AND WARM, CAP REFILL REMAINS BRISK. VSS. CALL LIGHT IN REACH
--- NOTE | 2019-03-18 14:00 | NUR ---
4 ADD'L CC AIR WAS REMOVED FROM Z BAND W/O BLEEDING NOTED. CAP REFILL BRISK. PT DENIES PAIN OR DISCOMFORT, VSS. CALL LIGHT IN REACH, AT BEDSIDE.
--- NOTE | 2019-03-18 14:20 | NUR ---
DISCHARGE INSTRUCTIONS REVIEWED W PT AND , BOTH VERBALIZED UNDERSTANDING. INSTRUCTED PT ON IMPORTANCE OF GETTING PLAVIX FILLED AND TO START TOMORROW, SHE VERBALIZED UNDERSTANDING. IV REMOVED W CATH INTACT. MONITORS REMOVED. PT UP TO DRESS FOR DISCHARGE
--- NOTE | 2019-03-18 14:30 | NUR ---
Z BAND REMOVED, NO BLEEDING OR S/S HEMATOMA NOTED. 2X2 AND TEGADERM DRESSING APPLIED. 1435 PT TO BR VIA WC, VOIDING W/O DIFFICULITY
--- NOTE | 2019-03-18 14:40 | NUR ---
PT DISCHARGED VIA WC TO WAITING IN PRIVATE VEHICLE. PT HAD ALL BELONGINGS AND DISCHARGE INFORMATION .
== END 2019-03-18 14:40 | disposition home or self-care (01) ==
LOC: D.CLR 07:01 → D.CATH 07:01 → D.CLR 07:30 → D.CATH 09:30
PROVIDERS: ATTEND Internal Medicine Interventional Cardiology
DX: I25.119 Atherosclerotic heart disease of native coronary artery with unspecified angina pectoris (principal); R94.30 Abnormal result of cardiovascular function study, unspecified; R06.00 Dyspnea, unspecified
CPT/HCPCS: 93458; 93571; 93572; C9600 ×2

== ENCOUNTER → 2019-04-27 12:19 | Outpatient (CLI) | payer MEDICARE, BC ==
[2019-03-18 07:39] VITALS: BMI 45.9
== END | disposition home or self-care (01) ==
LOC: D.MRI 12:19
PROVIDERS: ATTEND Internal Medicine
DX: M54.16 Radiculopathy, lumbar region (principal)

== ENCOUNTER → 2020-10-04 08:58 | Outpatient (CLI) | payer MEDICARE, BC ==
[2019-03-18 07:39] VITALS: BMI 45.9
== END | disposition home or self-care (01) ==
LOC: D.HCCECHO 08:58
PROVIDERS: ATTEND Internal Medicine Interventional Cardiology
DX: I10 Essential (primary) hypertension (principal)